=== PATIENT | male | born 1935 | race Caucasian/White ===

== ENCOUNTER 2023-07-29 09:05 | Day surgery (SDC) | payer MEDICARE, BC ==
[~2023-07-29 09:05] MED LIST: SODIUM CHLORIDE 0.9% 1,000 ML IV SCH
[2023-07-29] MEDS ORDERED: LACTATED RINGERS 1,000 ML IV ONE (09:39)
[2023-07-29 09:50] LABS: Glucose,Whole Blood 134 mg/dL (70-110)
[2023-07-29 10:08] LABS: African American GFR (CKD) 74 (>60 ml/min/1.73 sqM); Anion Gap 11 mmol/L; Blood Urea Nitrogen 16 mg/dL (9-20); Calcium 9.1 mg/dL (8.4-10.2); Carbon Dioxide 19 mmol/L (22-30); Chloride 107 mmol/L (98-107); Glucose 147 mg/dL (74-99); Non-African American GFR(CKD) 64 (>60 ml/min/1.73 sqM); Sodium 137 mmol/L (137-145)
[2023-07-29 10:15] LABS: Potassium 4.3 mmol/L (3.5-5.1)
[2023-07-29] MEDS ORDERED: PROPOFOL 10 MG/ML 20 ML VIAL IV ONE (10:30)
[2023-07-29] MEDS ORDERED: LIDOCAINE 1% INJ 10MG/ML (20 ML MDV) ONE (10:30)
--- NOTE | 2023-07-29 11:03 | P.PCN ---
Date of Procedure: 07/29/23 Description of Procedure: Indication: Atrial flutter Procedure Description: After explaining the procedure to the patient, it's risk and complications, blood pressure, heart rate and O2 saturation were monitored. The throat was sprayed with Cetacaine. Patient received sedation per anesthesia department . T he probe was introduced into the esophagus without difficulty. Images were obtained. Following that, the probe was removed. There was no immediate complication. Findings: Left atrial size is mildly dilated, spontaneous contrast was noted, left atrial appendage is normal. Left ventricular systolic function is severely impaired with global hypokinesis. Ejection fraction 30 to 35%. The aortic valve revealed fibrocalcific changes of the aortic cusps with preserved opening. Mitral annulus calcification was noted. The tricuspid valve appears to be normal. Descending thoracic aorta revealed mild atherosclerotic changes. No pericardial effusion was noted. Contrast bubble study revealed delayed shunting across the interatrial septum. Doppler: Pulse wave and color Doppler were obtained, mild mitral and tricuspid regurgitation with mild [id number] shunting through PFO. Conclusion: 1. Dilated left atrium with spontaneous contrast and normal appearance of the left atrial appendage 2. Severe global hypokinesis of the left ventricle 3. Mild mitral and tricuspid regurgitation 4. Evidence of left to right shunting through a PFO with highly mobile intra- atrial septum 5. No pericardial effusion Cardioversion: After explaining the procedure to the patient, obtaining a SIDNEY and sedated state synchronized biphasic cardioversion using 150 J was performed with orthodoxy of sinus mechanism. There was no immediate complications.
[2023-07-29 12:10] VITALS: PULSE 88; TEMP 98
[2023-07-29 12:35] VITALS: BP 115/84; RESP 16
[2023-07-29] MEDS ORDERED: metFORMIN 500 MG TAB PO SCH (17:30)
[2023-07-29] MEDS ORDERED: APIXABAN 5 MG TAB PO SCH (21:00)
[2023-07-29] MEDS ORDERED: METOPROLOL TARTRATE 50 MG TAB PO SCH (21:00)
[2023-07-30] MEDS ORDERED: PRAVASTATIN SODIUM 40 MG TAB PO SCH (09:00)
[2023-07-30] MEDS ORDERED: lisinopriL 20 MG TAB PO SCH (09:00)
== END 2023-07-29 12:55 | disposition home or self-care (01) ==
LOC: OR 09:05
PROVIDERS: ATTEND Internal Medicine Interventional Cardiology
DX: I48.92 Unspecified atrial flutter (principal); Q21.12 Patent foramen ovale; I11.0 Hypertensive heart disease with heart failure; I50.9 Heart failure, unspecified; E78.5 Hyperlipidemia, unspecified; E11.9 Type 2 diabetes mellitus without complications; Z95.5 Presence of coronary angioplasty implant and graft; Z79.01 Long term (current) use of anticoagulants; Z79.84 Long term (current) use of oral hypoglycemic drugs; Z79.899 Other long term (current) drug therapy
CPT/HCPCS: 93312; 93320; 93325; 92960; 80048; J2001; J2704

== ENCOUNTER 2024-02-04 12:14 | Emergency (ER) | payer MEDICARE, BC ==
--- NOTE | 2024-02-04 13:05 | ED ---
Extremity Problem HPI - General Source: patient, family, RN notes reviewed Mode of arrival: wheelchair Limitations: no limitations <Sonia Salinas - Last Filed: 02/04/24 13:04> <Ele Nguyễn - Last Filed: 02/05/24 16:28> - General Chief complaint: Extremity Injury, Upper Stated complaint: Fall/R Arm/Shoulder Injury Time Seen by Provider: 02/04/24 13:04 - History of Present Illness Initial comments: Quick Note: This is an 88-year-old male who presents to the emergency department for a fall. States that yesterday he was lifting up the trash can and in the process ended up falling on his right side. Denies hitting his head or any loss of consciousness. He is on Eliquis. He has since had pain over the right shoulder going down the arm and is having difficulty moving the arm. (Sonia Salinas) Patient is an 88-year-old gentleman past medical history of CAD, a flutter on Eliquis, diabetes presenting today for fall. Patient was lifting up his trash can yesterday when he fell onto his right side. Patient denies any head or neck trauma. No LOC. Caught his weight with his right arm and right shoulder. Happened last night. Took 500 mg Tylenol at noon today. Denies any numbness. Endorses pain over right shoulder going down right arm. Difficulty abducting and abducting at the shoulder. Hx prior shoulder replacement. (Ele Nguyễn) - Related Data Home Medications Medication Instructions Recorded Confirmed Apixaban [Eliquis] 5 mg PO BID 07/27/23 02/04/24 Insulin Aspart [NovoLOG Flexpen] 8 units SQ AC-SUPPER 07/27/23 02/04/24 Insulin Aspart [NovoLOG Flexpen] 10 units SQ AC-LUNCH 07/27/23 02/04/24 Insulin Aspart [NovoLOG Flexpen] 14 units SQ AC-BRKFST 07/27/23 02/04/24 Insulin Glargine,Hum.rec.anlog 16 unit SQ HS 07/27/23 02/04/24 [Basaglar Kwikpen U-100] Omeprazole 20 mg PO DAILY 07/27/23 02/04/24 Pravastatin Sodium [Pravachol] 40 mg PO DAILY 07/27/23 02/04/24 metFORMIN HCL [Glucophage] 1,000 mg PO BID 07/27/23 02/04/24 trandolapriL [Mavik] 2 mg PO DAILY 07/27/23 02/04/24 Cholecalciferol (Vitamin D3) 50 mcg PO DAILY 02/04/24 02/04/24 [Vitamin D3 (50 Mcg = 2000 Iu)] Cyanocobalamin (Vitamin B-12) 1,000 mcg PO DAILY 02/04/24 02/04/24 [Vitamin B-12] Metoprolol Tartrate [Lopressor] 50 mg PO BID 02/04/24 02/04/24 Previous Rx's Medication Instructions Recorded traMADol HCl [Ultram] 50 mg PO Q8HR PRN 3 Days #12 tab 02/04/24 MDD 200 mg Allergies Allergy/AdvReac Type Severity Reaction Status Date / Time No Known Allergies Allergy Verified 02/04/24 15:32 Review of Systems ROS Other: All systems not noted in ROS Statement are negative. <Sonia Salinas - Last Filed: 02/04/24 13:04> ROS Statement: Those systems with pertinent positive or pertinent negative responses have been documented in the HPI. Past Medical History Past Medical History: Atrial Flutter, Coronary Artery Disease (CAD), Diabetes Mellitus, Hyperlipidemia, Hypertension Additional Past Medical History / Comment(s): Type II Diabetes, nonischemic cardiomyopathy, shortness of breath with exertion - has improved in last 3 mos. History of Any Multi-Drug Resistant Organisms: None Reported Past Surgical History: Heart Catheterization With Stent Additional Past Surgical History / Comment(s): CABG 2011, shoulder surgery Past Anesthesia/Blood Transfusion Reactions: No Reported Reaction Date of Last Stent Placement:: 2003 Smoking Status: Never smoker - Past Family History Mother Family Medical History: CVA/TIA Father Family Medical History: Diabetes Mellitus <Sonia Salinas - Last Filed: 02/04/24 13:04> General Exam <Sonia Salinas - Last Filed: 02/04/24 13:04> <Ele Nguyễn - Last Filed: 02/05/24 16:28> - General Exam Comments Initial Comments: Visual Physical Exam Vital signs reviewed General: Well-appearing, nontoxic, no acute distress. Head: Normocephalic, atraumatic Eyes: PERRLA, EOMI ENT: Airway patent Chest: Nonlabored breathing Skin: No visual rash, normal skin tone Neuro: Alert and oriented 3 Musculoskeletal: No gross abnormalities (Vogley,Sonia) PE: CONSTITUTIONAL: No apparent distress, well appearing SKIN: warm, dry, no jaundice, hives or petechiae, no lacerations, no abrasions. Bruising present over region of the bicep EYES: Pupils are equally round, extraocular movements intact without nystagmus, clear conjunctiva, non-icteric sclera HENT: Normocephalic, atraumatic, moist mucus membranes, oropharynx clear without exudates NECK: , Full range of motion, normal appearance, no midline spinal tenderness to palpation PULMONARY: Clear to auscultation without wheezes, rhonchi, or rales, normal excursion, no accessory muscle use and no stridor CARDIOVASCULAR: Regular rate, rhythm, normal S1 and S2. No appreciated murmurs, rubs or gallops. Strong radial pulses with intact distal perfusion. No lower extremity edema GASTROINTESTINAL: Soft, non-tender, non-distended, no palpable masses, no rebound or guarding. No hepatosplenomegaly GENITOURINARY: MUSCULOSKELETAL: Right shoulder appears to be anteriorly and inferiorly displaced with lateral left scapula, tenderness to palpation along the proximal humerus, no tenderness palpation of the elbow, patient endorses pain in the proximal right upper extremity when right forearm is palpated, no tenderness ovation of the wrist or hand, patient is able to flex and extend his wrist and fingers through full range of motion, he is able to flex and extend his elbow from 90 degrees to 180 degrees, he is unable to abduct or flex his right shoulder secondary to pain, 2+ radial pulse palpated, sensation intact throughout the right upper extremity including in the deltoid region, remaining extremities have no gross deformity, no edema, redness, or swelling. NEUROLOGIC:_a/o x 3, GCS 15, normal mentation and speech. Moves all extremities x 4 without motor or sensory deficit, with exception of right shoulder as noted above PSYCHIATRIC:_normal mood and affect, thought process is clear and linear (Ele Nguyễn) Course <Ele Nguyễn - Last Filed: 02/05/24 16:28> Vital Signs 02/04/24 02/04/24 13:04 14:40 Temperature 97.7 F 98.3 F Pulse Rate 80 87 Respiratory 16 18 Rate Blood Pressure 115/63 102/66 O2 Sat by Pulse 97 96 Oximetry - Reevaluation(s) Reevaluation #1: X-ray humerus read as periprosthetic fracture of the humerus. [facility], ordered CT shoulder to further evaluate 02/04/24 14:46 (Ele Nguyễn) Medical Decision Making <Sonia Salinas - Last Filed: 02/04/24 13:04> <Ele Nguyễn - Last Filed: 02/05/24 16:28> - Medical Decision Making I performed the QuickNote portion of this chart. Signed Sonia Salinas PA-C. (Sonia Salinas) reviewed triage note, fell from standing complain of right shoulder pain right elbow pain, pain with range of motion Was pt. sent in by a medical professional or institution (JOSIE Saeed, DIRECTOR OF RETENTION, urgent care, hospital, or fci...) When possible be specific @ -No Did you speak to anyone other than the patient for history (EMS, parent, family, police, friend...)? What history was obtained from this source @ -No Did you review nursing and triage notes (agree or disagree)? Why? @ -I reviewed and agree with nursing and triage notes Were old charts reviewed (outside hosp., previous admission, EMS record, old EKG, old radiological studies, urgent care reports/EKG's, fci records)? Report findings @ -Patient here for cardioversion on 07/29/23 Differential Diagnosis (chest pain, altered mental status, abdominal pain women, abdominal pain men, vaginal bleeding, weakness, fever, dyspnea, syncope, headache, dizziness, GI bleed, back pain, seizure, CVA, palpatations, mental he alth, musculoskeletal)? @ -Differential Musculoskeletal Muscular strain, contusion, ligament sprain, fracture, arthritis, muscle spasm, nerve compression.... This is not meant to be in all inclusive list EKG interpreted by me (3pts min.). @ -None performed X-rays interpreted by me (1pt min.). @ -On review x-ray of right shoulder, on first film it appears the head of the humerus is anteriorly dislocated with respect to the glenohumeral joint, on review of the right forearm I see no evidence of fracture, dislocation or malalignment CT interpreted by me (1pt min.). @ -None done U/S interpreted by me (1pt. min.). @ -None done What testing was considered but not performed or refused? (CT, X-rays, U/S, labs)? Why? @ -None What meds were considered but not given or refused? Why? @ -Considered administering Houston or IM morphine however patient politely declined due to prior poor reaction to Tylenol 3 Did you discuss the management of the patient with other professionals (professionals i.e. , PA, DIRECTOR OF RETENTION, lab, RT, psych nurse, social media designer, paving inspector, teacher, certification officer, assistant case manager)? Give summary @ -No Was smoking cessation discussed for >3mins.? @ -No Was critical care preformed (if so, how long)? @ -No Were there social determinants of health that impacted care today? How? (Homelessness, low income, unemployed, alcoholism, drug addiction, transportation, low edu. Level, literacy, decrease access to med. care, halfway, rehab)? @ -No Was there de-escalation of care discussed even if they declined (Discuss DNR or withdrawal of care, Hospice)? DNR status @ -No What co-morbidities impacted this encounter? (DM, HTN, Smoking, COPD, CAD, Cancer, CVA, ARF, Chemo, Hep., AIDS, mental health diagnosis, sleep apnea, morbid obesity)? @ -None Was patient admitted / discharged? Hospital course, mention meds given and route, prescriptions, significant lab abnormalities, going to OR and other pertinent info. @ -Hospital course 88-year-old gentleman past medical history atrial flutter on Eliquis, CAD, diabetes, hypertension, hyperlipidemia presenting today for right shoulder injury after mechanical trip and fall last night. On my assessment patient is resting comfortably in hallway cot, holding his right arm. Patient was able to remove his shorts I could fully visualize the right upper extremity. He denied injury to his head or neck or elsewhere. Right shoulder deformity with right shoulder appearing anteriorly displaced with regards to glenohumeral joint, bruising and TTP over bicep as well as referred pain to right shoulder with palpation of forearm, no sign of injury to the elbow, wrist or hand. Extremity is neurovascularly intact. Patient is unable to abduct or flex the right shoulder 2/2 pain. Ordered valium and additional 500 mg Tylenol for pain control. Offered [place] however patient has had a poor reaction (nausea) to Tylenol 3 in the past per family at bedside so norco was withheld. Patient initially seen and assessed by triage provider, x-ray of the right shoulder and forearm are ordered. My interpretation of these is noted above. X-ray of the forearm was read by radiologist as no acute osseous process. Ultimately X-ray of right shoulder read by radiologist as "no evidence of acute osseous pathology, joint dislocation or soft tissue swelling. Impression: postsurgical changes of the right shoulder, no definite fracture concern remains consider CT imaging". Reading radiologist, Dr. Hogue was called, to discuss findings and persistent concern for anterior shoulder dislocation however states that XR shows normal findings for right shoulder arthroplasty. Added XR humerus and shoulder CT to further evaluation patient's region of pain. Updated patient and family to plan. X-ray of the humerus was obtained and read by radiologist as "acute periprosthetic fracture of the right humerus with bony step-off seen on this projection, better appreciated compared to shoulder radiograph performed on same day". I reviewed XR and agree with radiologist interpretation. On my assessment, periprostetic fracture of right humerus appreciated best in posterior view. Discussed with PAT Rausch with Dr. Heaton. If pain control patient be discharged home with outpatient follow-up with Dr. Guzman. Recommends sling placement. CT shoulder pending. Updated patient and family. Patient remains painful. They request trial dose tramadol as this has worked for patient in the past for pain control. Tramadol ordered. I discussed with them the option of remaining in the hospital for pain control however patient preferred discharge home. Was brought to my attention that patient does use a walker at times. I discussed with the patient, his and daughter concerns that he may not be able to ambulate at home with 1 arm. Patient is adamant that he would like to be discharged home. Patient's daughter feels that he will be able to ambulate with a cane and holding onto martínez in the home to be able to ambulate. CT showed acute right humerus periprosthetic fracture. Updated patient and family to findings and plan for sling placement. Patient and family comfortable with plan and with discharge home. Patient to be discharged home with short script for tramadol. We discussed the importance of following up with Dr. Heaton this week for further treatment of humerus fracture. We discussed signs symptoms warranting return to the emergency department. In my medical judgment there is currently no evidence of an immediate life- threatening or surgical condition. Discharge is therefore indicated at this time. Discharge treatment instructions, follow up instructions, and appropriate emergency department return precautions were discussed with the patient and/or medical decision maker. Patient and/or medical decision maker expressed un derstanding of and agreed with the treatment plan, follow up instructions, and emergency department return precaution. All patient's and/or medical decision maker's questions were answered. Patient instructed to return to the ED for any changes in symptoms, persistent symptoms, inability to obtain proper follow-up or for any further concerns. Patient received verbal and written instructions for this condition. Undiagnosed new problem with uncertain prognosis? @ Yes Drug Therapy requiring intensive monitoring for toxicity (Heparin, Nitro, Insulin, Cardizem)? @ -No Were any procedures done? @ -No Diagnosis/symptom? @ -Fall, right periprosthetic humerus fracture Acute, or Chronic, or Acute on Chronic? @ -Acute Uncomplicated (without systemic symptoms) or Complicated (systemic symptoms)? @ -Uncomplicated Side effects of treatment? @ -No Exacerbation, Progression, or Severe Exacerbation? @ -No (Ele Nguyễn) Disposition <Sonia Salinas - Last Filed: 02/04/24 13:04> Is patient prescribed a controlled substance at d/c from ED?: Yes When asked, does pt state using other controlled substances?: No If prescribed controlled substance>3 days was MAPS reviewed?: Prescribed <3 Days If opioid is for acute pain is fill amount 7 days or less?: Yes If Rx opioid, was Start Talking consent form obtained?: Yes Time of Disposition: 15:45 <Ele Nguyễn - Last Filed: 02/05/24 16:28> Clinical Impression: Periprosthetic fracture around internal prosthetic joint, Fall Disposition: HOME SELF-CARE Condition: Good Instructions (If sedation given, give patient instructions): Fall Prevention for Older Adults (ED), Proximal Humerus Fracture (ED) Additional Instructions: Every disease is a spectrum and a small chance still exists that a serious condition could develop, for this reason, please monitor yourself closely for new, changing or worsening symptoms, pain that you cannot control with home medications, numbness, uncontrolled, inability to tolerate/keep down fluids or your medications, inability to follow up with outpatient providers as instructed and should you experience these symptoms or should you have any further concerns for your wellbeing please return to the ED or call 911 immediately. Your pain can be treated with acetaminophen and tramadol. Please only take tramadol as needed. Please note that this may make you drowsy so please do not drive or operate heavy machinery on this medication. You can take up to 1000 mg of acetaminophen (Tylenol) every 6 hours. Be careful as this is included in some medicines like Nyquil, [place], Percocet, Vicodin, STANBACK, Goody's Powders, and Excedrin. Please keep your arm in shoulder immobilizer/sling is much as possible. Please follow-up with Dr. Heaton this coming Wednesday PLEASE call your primary care physician as soon as possible to arrange / discuss plan for followup appointment. Appointment in the next 1-3 days is strongly encouraged if possible. PLEASE let us know here before you leave if there is anything further we can do to be of any assistance. Take care and feel Better! Prescriptions: traMADol HCl [Ultram] 50 mg PO Q8HR PRN 3 Days #12 tab MDD 200 mg PRN Reason: Pain Control Referrals: Roman Yee DO [Primary Care Provider] - 1-2 days Shabbir Heaton MD [STAFF PHYSICIAN] - 1-2 days
--- NOTE | 2024-02-04 13:58 | XR ---
EXAMINATION TYPE: XR forearm RT DATE OF EXAM: 02/04/2024 1:29 PM CLINICAL INDICATION:Male, 88 years old with history of Fall; H COMPARISON: None TECHNIQUE: XR forearm RT; forearm was examined in AP and lateral projections. FINDINGS: No acute osseous pathology, soft tissue swelling or joint dislocations are seen. Atheroscl erosis of the arterial vasculature. IMPRESSION: No evidence of acute fracture.
--- NOTE | 2024-02-04 13:59 | XR ---
EXAMINATION TYPE: XR shoulder complete RT DATE OF EXAM: 02/04/2024 1:30 PM CLINICAL INDICATION:Male, 88 years old with history of Fall; COMPARISON: None TECHNIQUE: XR shoulder complete RT; examined in AP, internally rotated and scapular Y projections. FINDINGS: Right shoulder arthroplasty changes. Suspected postsurgical calcifications are seen around the humeral head. No evidence of acute osseous pathology, joint dislocation, or soft tissue swelling. The remaining po rtions of the visualized chest are unremarkable. IMPRESSION: Postsurgical changes right shoulder. No definitive fracture. If there remains concern consider CT gm ging.
[2024-02-04] MEDS: ACETAMINOPHEN TAB 500 MG TAB PO STA (14:15)
[2024-02-04] MEDS: diazePAM 5 MG TAB PO STA (14:15)
--- NOTE | 2024-02-04 14:33 | XR ---
EXAMINATION TYPE: XR humerus RT DATE OF EXAM: 02/04/2024 2:28 PM CLINICAL INDICATION:Male, 88 years old with history of fall, proximal upper extremity pain; [facility] COMPARISON: 02/04/2024 TECHNIQUE: XR humerus RT examined in frontal and lateral projections. FINDINGS/IMPRESSION: Acute periprosthetic fracture of the right humerus with bony step-off seen on this projection. This i s better appreciated compared to shoulder radiograph same day.
[2024-02-04 14:41] VITALS: BP 102/66; PULSE 87; RESP 18; TEMP 98.3
--- NOTE | 2024-02-04 15:27 | CT ---
EXAMINATION TYPE: CT shoulder RT wo con CT DLP: 606.9 mGycm, Automated exposure control for dose reduction was used. DATE OF EXAM: 02/04/2024 3:18 PM COMPARISON: Extremity radiograph same day. CLINICAL INDICATION:Male, 88 years old with history of fall, periprosthetic fracture; [facility], fall, righ t shoulder pain TECHNIQUE: Axial images were obtained of the CT shoulder RT wo con, Additional coronal and sagittal r eformatted images and soft tissue and bone window were obtained for review. 3-D reconstruction was cr eated on a separate workstation. Contrast used: mL of , (None if empty) Oral contrast used: (None if empty) FINDINGS: Acute fracture of the proximal right humerus around the prosthesis. The remainder of the ri ght shoulder and other osseous structures intact. There is scattered mild atherosclerosis of the gloria rial vasculature. The lungs are clear. IMPRESSION: Acute right humerus periprosthetic fracture as seen on same-day humerus radiographs.
[2024-02-04] MEDS: traMADol 50 MG STARTER PACK 3 TAB BTL PO STA (16:20)
[2024-02-04] MEDS: traMADol 50 MG TAB PO STA (16:21)
== END 2024-02-04 18:20 | disposition home or self-care (01) ==
LOC: EC 12:14
DX: M97.31XA Periprosthetic fracture around internal prosthetic right shoulder joint, initial encounter (principal); X50.0XXA Overexertion from strenuous movement or load, initial encounter
CPT/HCPCS: 99284